=== PATIENT | male | born 1965 | race Caucasian/White ===

== ENCOUNTER 2016-09-25 14:39 | Emergency (ER) | payer BC ==
[2016-09-25 14:56] VITALS: BP 131/85; PULSE 57; TEMP 97.8; BMI 26.3
--- NOTE | 2016-09-25 16:21 | PDOC ---
History of Present Illness <Isaias Andrade - Last Filed: 09/25/16 18:09> - General History Source: Patient Exam Limitations: No Limitations - History of Present Illness Initial Comments: 09/25/16 18:13 The patient is a 50 year old male with no significant past medical history who presents to the ED with rectal bleeding today for a week. Patient reports that for the past week when he has a bowel movement the stool brown in color and soft and he notes that the toilet bowl water is red and occasionally there is blood mixed in with the stool. He denies any constipation, straining, or melena. He reports mild lower abdominal pain. He reports that he had a colonoscopy last year and was found to have gastritis and hemorrhoids but denies any ulcers. He notes that he tried to make an appointment with Dr. Rios, but did not receive a call back after several messages which prompted him to present to the ED. Pt denies any current abdominal pain. He reports high fiber diet. The patient denies fever, chills, cough, SOB, chest pain, palpitations, nausea, vomiting, and diarrhea. Patient does not take any daily medications. <Kindra Richards - Last Filed: 09/25/16 18:14> - General Chief Complaint: Pain, Acute Stated Complaint: ABD PAIN, RECTAL BLEEDING Time Seen by Provider: 09/25/16 16:07 Past History - Past Medical History GI Disorders: Yes (GERD) - Psycho/Social/Smoking Cessation Hx Anxiety: No Suicidal Ideation: No Smoking History: Never smoked Hx Alcohol Use: No Drug/Substance Use Hx: No Substance Use Type: None <Isaias Andrade - Last Filed: 09/25/16 18:09> <Kindra Richards - Last Filed: 09/25/16 18:14> - Past Medical History Allergies/Adverse Reactions: Allergies Allergy/AdvReac Type Severity Reaction Status Date / Time Penicillins Allergy Rash Verified 09/25/16 14:52 Home Medications: Ambulatory Orders Sucralfate [Carafate] 1 gm PO QID #30 tablet 08/26/15 Review of Systems - Review of Systems Able to Perform ROS?: Yes Comments:: 09/25/16 18:13 CONSTITUTIONAL: No reported: Fever, Chills, Diaphoresis, Generalized Weakness, Malaise, Loss of Appetite HEENT: No reported: Rhinorrhea, Nasal Congestion, Throat Pain, Throat Swelling, Difficulty Swallowing, Mouth Swelling, Ear Pain, Eye Pain, Visual Changes CARDIOVASCULAR: No reported: Chest Pain, Syncope, Palpitations, Irregular Heart Rate, Lightheadedness, Peripheral Edema RESPIRATORY: No reported: Cough, Shortness of Breath, SOB with Exertion, Orthopnea, Wheezing , Stridor, Hemoptysis GASTROINTESTINAL: Reports: rectal bleeding No reported: Abdominal Distension, Nausea, Vomiting, Diarrhea, Constipation, Melena, Hematochezia GENITOURINARY: No reported:Frequency, Urgency, Hesitancy, Flank Pain, Genital Pain MUSCULOSKELETAL: No reported: Myalgia, Arthralgia, Joint Swelling, Back pain, Neck Pain SKIN: No reported: Rash, Itching, Pallor HEMEATOLOGIC/IMMUNOLOGIC: No reported: Easy Bleeding, Easy Bruising, Lymphadenopathy, Frequent infections ENDOCRINE: No reported: Unexplained Weight Gain, Unexplained Weight Loss, Heat Intolerance , Cold Intolerance NEUROLOGIC: No reported: Headache, Focal Weakness, Paresthesias, Vertigo, Lightheadedness, Unsteady Gait, Seizure, Mental Status Changes, Incontinence PSYCHIATRIC: No reported: Anxiety, Depression <Kindra Richards - Last Filed: 09/25/16 18:14> *Physical Exam - Vital Signs Last Vital Signs Temp Pulse Resp BP Pulse Ox 97.8 F 57 L 19 131/85 99 09/25/16 14:52 09/25/16 14:52 09/25/16 14:52 09/25/16 14:52 09/25/16 14:52 <Isaias Andrade - Last Filed: 09/25/16 18:09> - Vital Signs Last Vital Signs Temp Pulse Resp BP Pulse Ox 97.8 F 57 L 19 131/85 99 09/25/16 14:52 09/25/16 14:52 09/25/16 14:52 09/25/16 14:52 09/25/16 14:52 - Physical Exam Comments: 09/25/16 18:14 GENERAL: The patient is awake, alert, and fully oriented, Nontoxic - in no acute distress. HEAD: Normocephalic, atraumatic. EYES: extraocular movements intact, sclera anicteric, conjunctiva clear. ENT: Normal voice, Moist mucous membranes. NECK: Normal range of motion, supple LUNGS: Breath sounds equal, clear to auscultation bilaterally. No wheezes, no rhonchi, no rales. HEART: Regular rate and rhythm, without murmur, rub or gallop. ABDOMEN: Soft, nontender, normoactive bowel sounds. No guarding, no rebound.No CVA tenderness EXTREMITIES: Normal range of motion, no edema. No clubbing or cyanosis. No cords , erythema, or tenderness. NEUROLOGICAL: No facial asymmetry, Normal speech, PSYCH: Normal mood, normal affect. SKIN: Warm, Dry, normal turgor Rectal Exam: brown stool, non bloody, no external hemorrhoids, no melena <Kindra Richards - Last Filed: 09/25/16 18:14> Heart Score/ECG Review - ECG Impressions Comment:: 09/25/16 17:48 Twelve-lead EKG was performed and reviewed by me. There is normal sinus rhythm with a rate of 46 Left axis deviation The intervals are normal. There are no ST or T wave abnormalities. Impression: Sinus bradycardia <Isaias Andrade - Last Filed: 09/25/16 18:09> ED Treatment Course - LABORATORY CBC & Chemistry Diagram: 09/25/16 16:55 09/25/16 16:55 <Isaias Andrade - Last Filed: 09/25/16 18:09> - LABORATORY CBC & Chemistry Diagram: 09/25/16 16:55 09/25/16 16:55 - ADDITIONAL ORDERS Additional order review: Laboratory Results 09/25/16 09/25/16 16:56 16:55 Sodium 140 Potassium 4.3 Chloride 104 Carbon Dioxide 28 Anion Gap 8 BUN 18 Creatinine 1.0 Creat Clearance w eGFR > 60 Random Glucose 75 Calcium 9.7 Total Bilirubin 0.5 AST 25 D ALT 57 D Alkaline Phosphatase 61 Total Protein 7.6 Albumin 4.3 Lipase 140 Urine Color Straw Urine Appearance Clear Urine pH 6.0 Ur Specific [place] 1.010 Urine Protein Negative Urine Glucose (UA) Negative Urine Ketones Negative Urine Blood Negative Urine Nitrite Negative Urine Bilirubin Negative Urine Urobilinogen Negative Ur Leukocyte Esterase Negative Stool Occult Blood Negative 09/25/16 16:55 RBC 5.28 MCV 87.7 MCHC 34.0 RDW 12.9 MPV 11.0 Neutrophils % 57.8 Lymphocytes % 33.3 Monocytes % 5.9 Eosinophils % 2.2 Basophils % 0.8 <Kindra Richards - Last Filed: 09/25/16 18:14> Medical Decision Making - Medical Decision Making 09/25/16 16:43 51y M hx of gastritis presents with intermittent rectal bleeding when he has a bowl movement, pt states that most of the time he has brown stool that is soft but covered with blood but stops after some whiping. pt denies any fever/chills , n/v, palpitations, cp, sob, lgihtheadedness. pts rectal exam shows brown stool, large prostate, no visible hemorroids or fissures suspect possible internal hemorroids. also consider diverticular bleeding no abd tenderness, will ck labs to r/o anemia 09/25/16 18:06 labs reviewed no signs of anemia no elevated BUN to suggest UGB guaiac engative will dc him with GI fu return precautions wre discussed pt already has miralax at home and denies any constipation - so will have continue his miralax I discussed the physical exam findings, ancillary test results and final diagnoses with the patient. I answered all of the patient's questions. The patient was satisfied with the care received and felt comfortable with the discharge plan and treatment plan. The patient will call their primary care physician within 24 hours to arrange follow-up and will return to the Emergency Department with any new, persistent or worsening symptoms. <Isaias Andrade - Last Filed: 09/25/16 18:09> *DC/Admit/Observation/Transfer - Discharge Dispostion Admit: No <Isaias Andrade - Last Filed: 09/25/16 18:09> - Attestations Scribe Attestion: 09/25/16 18:14 Documentation prepared by CRISTÓBAL Giraldo, acting as medical review specialist for Isaias Andrade MD. <Kindra Richards - Last Filed: 09/25/16 18:14> Diagnosis at time of Disposition: Rectal bleed - Discharge Dispostion Disposition: HOME Condition at time of disposition: Improved - Referrals Referrals: Johny Blanchard [Primary Care Provider] - Skip Rios MD [Staff Physician] - - Patient Instructions Printed Discharge Instructions: DI for Rectal Bleeding Additional Instructions: Return to the emergency department immediately with ANY new, persistent or worsening symptoms. I suspect that you're bleeding is likely secondary to hemorrhoids, although I cannot visualize any external hemorrhoids. Please return if you have persistent bleeding, lightheadedness, palpitations or other concerns. You MUST call and follow up with your doctor and GI for further evaluation of your symptoms. Results were discussed with you. Please make sure your doctor reviews the results of your emergency evaluation. Print Language: FINNISH
[2016-09-25 17:17] LABS: STOOL FOR OCCULT BLOOD NEGATIVE (NEGATIVE)
[2016-09-25 17:18] LABS: BASOPHIL 0.8 % (0-2.0); EOSINOPHIL 2.2 % (0-4.5); MCH 29.8 pg (25.7-33.7); MEAN CELL VOLUME 87.7 fl (80-96); NEUTROPHILS 57.8 % (42.8-82.8); PLATELET COUNT 149 K/MM3 (134-434); RDW 12.9 % (11.9-15.9); WHITE BLOOD COUNT 7.7 K/mm3 (4.0-10.0)
[2016-09-25 17:29] LABS: URINE APPEARANCE CLEAR; URINE BILIRUBIN NEGATIVE (NEGATIVE); URINE BLOOD NEGATIVE (NEGATIVE); URINE COLOR STRAW; URINE GLUCOSE (UA) NEGATIVE (NEGATIVE); URINE KETONE NEGATIVE (NEGATIVE); URINE LEUK ESTERASE NEGATIVE (NEGATIVE); URINE NITRITE NEGATIVE (NEGATIVE); URINE PROTEIN NEGATIVE (NEGATIVE); URINE UROBILINOGEN NEGATIVE E.U./dl (0.2-1.0)
[2016-09-25 17:42] LABS: ALBUMIN 4.3 g/dl (3.4-5.0); ALK PHOS 61 U/L (45-117); ANION GAP 8 (8-16); BILIRUBIN,TOTAL 0.5 mg/dL (0.2-1.0); CALCIUM 9.7 mg/dL (8.5-10.1); CO2 28 mmol/L (21-32); GLUCOSE,RANDOM 75 mg/dL (74-106); SGOT/AST 25 U/L (15-37); SGPT/ALT 57 U/L (12-78); TOT PROT 7.6 g/dl (6.4-8.2)
--- NOTE | 2016-09-26 12:04 | EKG ---
Test Reason : Blood Pressure : / mmHG Vent. Rate : 046 BPM Atrial Rate : 046 BPM P-R Int : 152 ms QRS Dur : 096 ms QT Int : 452 ms P-R-T Axes : 065 -37 015 degrees QTc Int : 395 ms SINUS BRADYCARDIA WITH OCCASIONAL PREMATURE VENTRICULAR COMPLEXES LEFT AXIS DEVIATION SEPTAL INFARCT , AGE UNDETERMINED ABNORMAL ECG NO PREVIOUS ECGS AVAILABLE Confirmed by CARLO CHAND MD ([id number]) on 09/26/2016 12:03:49 PM Referred By: Confirmed By:CAROL CHAND MD
== END 2016-09-25 18:45 | disposition home or self-care (01) ==
LOC: JER 14:39
DX: K62.5 Hemorrhage of anus and rectum (principal)
CPT/HCPCS: 36415; 80053; 81003; 82272; 83690; 85025; 93005; 93010; 99282-25

== ENCOUNTER 2017-05-09 18:16 | Emergency (ER) | payer BC ==
[2017-05-09 18:38] VITALS: BP 135/83; PULSE 60; TEMP 97.8; BMI 24.6
--- NOTE | 2017-05-09 21:53 | PDOC ---
History of Present Illness - General Chief Complaint: Chest Pain Stated Complaint: CHEST PAIN Time Seen by Provider: 05/09/17 21:44 - History of Present Illness Initial Comments: 05/09/17 21:53 CHIEF COMPLAINT: HISTORY OF PRESENT ILLNESS: 52-year-old male with history of GERD presents to ED with chest pain 3 days. Patient reports the pain is more localized to lower chest/upper abdomen. Patient denies any shortness of breath, fever, chills, nausea, vomiting. No recent travel or sick contacts. PAST MEDICAL HISTORY: Denies past medical history FAMILY HISTORY: Denies SOCIAL HISTORY: Lives at home with ____. Occupation: . Denies tobacco, alcohol, illicit drug use. SURGICAL HISTORY: Denies ALLERGIES: No known drug allergies REVIEW OF SYSTEMS General/Constitutional: Denies fever or chills. Denies weakness, weight change. HEENT: Denies change in vision. Denies ear pain or discharge. Denies sore throat. Cardiovascular: Denies chest pain or shortness of breath. Respiratory: Denies cough, wheezing, or hemoptysis. Gastrointestinal: Denies nausea, vomiting, diarrhea or constipation. Denies rectal bleeding. Genitourinary: Denies dysuria, frequency, or change in urination. Musculoskeletal: Denies joint or muscle swelling or pain. Denies neck or back pain. Skin and breasts: Denies rash or easy bruising. Neurologic: Denies headache, vertigo, loss of consciousness, or loss of sensation. Psychiatric: Denies depression or anxiety. Endocrine: Denies increased thirst. Denies abnormal weight change. Hematologic/Lymphatic: Denies anemia, easy bleeding, or history of blood clots. Allergic/Immunologic: Denies hives or skin allergy. Denies latex allergy. PHYSICAL EXAM General Appearance: Well-appearing, appropriately dressed. No apparent distress , no intoxication. HEENT: EOMI, PERRLA, normal ENT inspection, normal voice, TMs normal, pharynx normal. No conjunctival pallor. No photophobia, scleral icterus. Neck: Supple. Trachea midline. No tenderness, rigidity, carotid bruit, stridor , lymphadenopathy, or thyromegaly. Respiratory/Chest: Lungs CTAB. No shortness of breath, chest tenderness, respiratory distress, accessory muscle use. No crackles, rales, rhonchi, stridor , wheezing, dullness Cardiovascular: RRR. S1, S2. No JVD, murmur, bradycardia, tachycardia. Vascular Pulses: Dorsalis-Pedis (R): 2+, Dorsalis-Pedis (L): 2+ Gastrointestinal/Abdominal: Normal bowel sounds. Abdomen soft, non-distended. No tenderness or rebound tenderness. No organomegaly, pulsatile mass, guarding , hernia, hepatomegaly, splenomegaly. Lymphatic: No adenopathy, tenderness. Musculoskeletal/Extremities: Normal inspection. FROM of all extremities, normal capillary refill. Pelvis Stable. No CVA tenderness. No tenderness to extremities, pedal edema, swelling, erythema or deformity. Integumentary: Appropriate color, dry, warm. No cyanosis, erythema, jaundice or rash Neurologic: custom framing specialist II-XII intact. Fully oriented, alert. Appropriate mood/affect. Motor strength 5/5. No appreciable EOM palsy, facial droop or sensory deficit. Past History - Past Medical History Allergies/Adverse Reactions: Allergies Allergy/AdvReac Type Severity Reaction Status Date / Time Penicillins Allergy Rash Verified 05/09/17 18:33 Home Medications: Ambulatory Orders Omeprazole 40 mg PO DAILY 05/09/17 GI Disorders: Yes (GERD) - Immunization History Immunization Up to Date: Yes - Suicide/Smoking/Psychosocial Hx Smoking History: Never smoked Have you smoked in the past 12 months: No Information on smoking cessation initiated: No Hx Alcohol Use: No Drug/Substance Use Hx: No Substance Use Type: None *Physical Exam - Vital Signs Last Vital Signs Temp Pulse Resp BP Pulse Ox 97.8 F 60 16 135/83 99 05/09/17 18:34 05/09/17 18:34 05/09/17 18:34 05/09/17 18:34 05/09/17 18:34 ED Treatment Course - LABORATORY CBC & Chemistry Diagram: 05/09/17 22:00 05/09/17 22:00 - ADDITIONAL ORDERS Additional order review: Laboratory Results 05/09/17 05/09/17 22:00 22:00 PT with INR 14.00 H INR 1.27 H Sodium 138 Potassium 4.2 Chloride 105 Carbon Dioxide 28 Anion Gap 5 L BUN 17 Creatinine 0.9 Creat Clearance w eGFR > 60 Random Glucose 85 Calcium 8.8 Magnesium 2.2 Total Bilirubin 0.6 AST 19 D ALT 48 Alkaline Phosphatase 59 Creatine Kinase 114 Troponin I < 0.02 Total Protein 7.1 Albumin 3.9 05/09/17 22:00 RBC 4.93 MCV 87.6 MCHC 34.9 RDW 13.3 MPV 10.3 Neutrophils % 74.3 D Lymphocytes % 16.1 D Monocytes % 7.0 Eosinophils % 2.2 Basophils % 0.4 - RADIOLOGY Radiology Studies Ordered: Category Date Time Status CHEST PA & LAT [RAD] Stat Radiology 05/09/17 22:04 Completed - Medications Given in the ED: ED Medications Discontinued Medications Generic Name Dose Route Start Last Admin Trade Name An PRN Reason Stop Dose Admin Al Hydroxide/Mg Hydroxide 30 ml 05/09/17 23:00 05/09/17 23:08 Mylanta Oral Suspension - PO 05/09/17 23:01 30 ml ONCE ONE Administration Aspirin 162 mg 05/09/17 22:04 05/09/17 22:11 Asa - PO 05/09/17 22:05 162 mg ONCE ONE Administration Pantoprazole Sodium 40 mg/ 100 mls @ 200 mls/hr 05/09/17 23:00 05/09/17 23:08 Sodium Chloride IVPB 05/09/17 23:29 200 mls/hr ONCE ONE Administration Famotidine/Sodium Chloride 50 mls @ 100 mls/hr 05/09/17 23:00 05/09/17 23:08 Pepcid 20 Mg Premixed Ivpb - IVPB 05/09/17 23:29 100 mls/hr ONCE ONE Administration Sodium Chloride 1,000 ml 05/09/17 23:00 05/09/17 23:07 Normal Saline - IV 05/09/17 23:01 1,000 ml ONCE ONE Administration *DC/Admit/Observation/Transfer Diagnosis at time of Disposition: Bile-induced gastritis - Discharge Dispostion Disposition: HOME Condition at time of disposition: Stable Admit: No - Referrals Referrals: Johny Blanchard [Primary Care Provider] - Skip Rios MD [Staff Physician] - - Patient Instructions Printed Discharge Instructions: DI for Gastroesophageal Reflux Disease (GERD), GERD Diet Additional Instructions: As discussed, please follow up with Drs. Blanchard and Blanca this week for continued monitoring if your chest discomfort. If you develop any shortness of breath, new chest pain, palpitations, difficulty breathing, fever, chills, nausea, vomiting, or any new or worsening symptoms, please return to the ER.
[2017-05-09] MEDS ORDERED: ASPIRIN 81 MG CHEWABLE TABLETS PO ONE (22:04)
[2017-05-09] MEDS ORDERED: ASPIRIN 81 MG CHEWABLE TABLETS ONE (22:18)
[2017-05-09 22:21] LABS: BASOPHIL 0.4 % (0-2.0); EOSINOPHIL 2.2 % (0-4.5); MCH 30.6 pg (25.7-33.7); MCHC 34.9 g/dl (32.0-35.9); MEAN CELL VOLUME 87.6 fl (80-96); MEAN PLT VOLUME 10.3 fl (7.5-11.1); NEUTROPHILS 74.3 % (42.8-82.8); PLATELET COUNT 129 K/MM3 (134-434); RDW 13.3 % (11.9-15.9); WHITE BLOOD COUNT 10.5 K/mm3 (4.0-10.0)
[2017-05-09 22:39] LABS: INR 1.27 (0.82-1.09)
[2017-05-09 22:44] LABS: ALBUMIN 3.9 g/dl (3.4-5.0); ANION GAP 5 (8-16); BILIRUBIN,TOTAL 0.6 mg/dL (0.2-1.0); CALCIUM 8.8 mg/dL (8.5-10.1); CO2 28 mmol/L (21-32); CREATININE 0.9 mg/dL (0.7-1.3); GLUCOSE,RANDOM 85 mg/dL (74-106); MAGNESIUM 2.2 mg/dL (1.8-2.4); SGOT/AST 19 U/L (15-37); SGPT/ALT 48 U/L (12-78); TOT PROT 7.1 g/dl (6.4-8.2)
[2017-05-09 22:47] LABS: ALK PHOS 59 U/L (45-117); CPK 114 IU/L (39-308); TROPONIN I < 0.02 ng/ml (0.00-0.05)
[2017-05-09] MEDS ORDERED: FAMOTIDINE 20 MG/50 ML IVPB 50 ML IVPB ONE ×2 (23:00→23:12)
[2017-05-09] MEDS ORDERED: MAG HYDROX/AL HYDROX/SIMETH 30 ML UNIT-DOSE CUP PO ONE (23:00)
[2017-05-09] MEDS ORDERED: SODIUM CHLORIDE 0.9% 1000 ML INFUS.BAG IV ONE (23:00)
[2017-05-09] MEDS ORDERED: PANTOPRAZOLE SODIUM 40 MG in SODIUM CHLORIDE 100 ML IVPB ONE (23:00)
[2017-05-09] MEDS ORDERED: PANTOPRAZOLE SODIUM 100 ML IVPB ONE (23:10)
--- NOTE | 2017-05-10 13:48 | EKG ---
Test Reason : Blood Pressure : / mmHG Vent. Rate : 062 BPM Atrial Rate : 062 BPM P-R Int : 148 ms QRS Dur : 104 ms QT Int : 396 ms P-R-T Axes : 056 -38 015 degrees QTc Int : 401 ms NORMAL SINUS RHYTHM LEFT AXIS DEVIATION SEPTAL INFARCT (CITED ON OR BEFORE 25-SEP-2016) ABNORMAL ECG WHEN COMPARED WITH ECG OF 25-SEP-2016 17:39, PREMATURE VENTRICULAR COMPLEXES ARE NO LONGER PRESENT Confirmed by JAY BARROW MD ([id number]) on 05/10/2017 1:48:46 PM Referred By: Confirmed By:JAY BARROW MD
== END 2017-05-10 00:48 | disposition home or self-care (01) ==
LOC: JER 18:16
PROC: 3E033GC Introduction of Other Therapeutic Substance into Peripheral Vein, Percutaneous Approach (ICD-10-PCS; principal; 2017-05-09)
PROC: 3E033GC Introduction of Other Therapeutic Substance into Peripheral Vein, Percutaneous Approach (ICD-10-PCS; 2017-05-09)
DX: K29.60 Other gastritis without bleeding (principal); K21.9 Gastro-esophageal reflux disease without esophagitis
CPT/HCPCS: 36415; 71020-TC; 80053; 83735; 84484; 85025; 85610; 93005; 93010; 99283-25

== ENCOUNTER 2021-05-09 09:16 | Emergency (ER) | payer BC, OTHER ==
[2021-05-09 09:26] VITALS: BP 124/78; PULSE 63; TEMP 97; BMI 25.3
[2021-05-09] MEDS ORDERED: SODIUM CHLORIDE 1,000 ML IV STA (09:41)
[2021-05-09 10:47] LABS: PH,URINE 5.5 (5.0-8.0); URINE APPEARANCE CLEAR; URINE BILIRUBIN NEGATIVE (NEGATIVE); URINE COLOR YELLOW; URINE GLUCOSE (UA) NEGATIVE (NEGATIVE); URINE KETONE NEGATIVE (NEGATIVE); URINE LEUK ESTERASE NEGATIVE (NEGATIVE); URINE NITRITE NEGATIVE (NEGATIVE); URINE PROTEIN NEGATIVE (NEGATIVE); URINE UROBILINOGEN 0.2 mg/dL (0.2-1.0)
[2021-05-09 10:48] LABS: BASO % 0.4 % (0-2.0); EOS % 3.5 % (0-4.5); HEMOGLOBIN 15.6 GM/dL (11.7-16.9); LYMPH % 31.4 % (8-40); MCH 31.5 pg (25.7-33.7); MCHC 34.7 g/dl (32.0-35.9); MEAN CELL VOLUME 90.8 fl (80-96); MEAN PLT VOLUME 9.9 fl (7.5-11.1); MONO % 10.1 % (3.8-10.2); NEUT % 54.6 % (42.8-82.8); PLATELET COUNT 150 10^3/uL (134-434); RBC 4.96 M/mm3 (4.00-5.60); WHITE BLOOD COUNT 5.7 K/mm3 (4.0-10.0)
[2021-05-09 11:09] LABS: ALBUMIN 3.7 g/dl (3.4-5.0); BLOOD UREA NITROGEN 13.5 mg/dL (7-18); CALCIUM 8.8 mg/dL (8.5-10.1)
[2021-05-09 11:13] LABS: BILIRUBIN,TOTAL 0.4 mg/dL (0.2-1)
[2021-05-09 11:14] LABS: TOT PROT 7.2 g/dl (6.4-8.2)
== END 2021-05-09 11:40 | disposition home or self-care (01) ==
LOC: JER 09:16
PROC: 3E0337Z Introduction of Electrolytic and Water Balance Substance into Peripheral Vein, Percutaneous Approach (ICD-10-PCS; principal; 2021-05-09)
DX: R19.7 Diarrhea, unspecified (principal)
CPT/HCPCS: 36415; 80053; 81003; 83690; 85025; 87045; 87046; 99284-25; C9803; U0003; U0005